=== PATIENT | male | born 1995 | race African-American/Black ===

== ENCOUNTER 2022-10-20 19:08 | Emergency (ER) | payer SELFPAY ==
[~2022-10-20] VITALS: Ht 177.8 cm; Wt 77.3 kg
[2022-10-20 19:26] VITALS: BP 105/51
[2022-10-20 20:09] LABS: Basophils # (auto) 0.1 10 ^3/uL (0-0.2); Basophils % (auto) 0.8 % (0.0-2.0); Eosinophils # (auto) 0.1 10 ^3/uL (0-0.8); Eosinophils % (auto) 0.7 % (0.0-7.0); Hematocrit 47.9 % (41.0-53.0); Hemoglobin 16.4 g/dL (13.5-17.5); Lymphocytes # (auto) 1.9 10 ^3/uL (0.4-5.4); Lymphocytes % (auto) 24.1 % (10.0-50.0); Mean Corpuscular Hemoglobin 29.8 pg (28.0-32.0); Mean Corpuscular Hgb Conc. 34.2 g/dL (32.0-36.0); Mean Corpuscular Volume 87.1 fL (80.0-100.0); Monocytes # (auto) 0.9 10 ^3/uL (0-1.3); Monocytes % (auto) 11.4 % (0.0-12.0); Nucleated Red Blood Cells % 0.2 %; White Blood Cell 7.9 10^3/uL (4.4-10.8)
[2022-10-20 20:31] LABS: Albumin 4.3 g/dL (3.4-5.0); Calcium 8.9 mg/dL (8.5-10.1)
[2022-10-20 20:34] LABS: BUN/Creatinine Ratio 25.2 (10.0-20.0); Bilirubin, Total 0.7 mg/dL (0.2-1.0); Total Protein 7.4 g/dL (6.4-8.2)
[2022-10-20 20:49] LABS: Urine WBC None Seen /hpf (0 - 3)
[2022-10-20 20:58] LABS: Urine Bacteria NONE SEEN /hpf (None Seen); Urine Blood Negative /uL (Negative); Urine Specific Gravity 1.016 (1.001-1.035)
== END 2022-10-20 21:02 | disposition left against medical advice (07) ==
LOC: ER 19:08
DX: R07.89 Other chest pain (principal); M54.2 Cervicalgia; M54.59 Other low back pain; M25.562 Pain in left knee; M25.561 Pain in right knee; Z53.21 Procedure and treatment not carried out due to patient leaving prior to being seen by health care provider
CPT/HCPCS: 36415; 70450; 71250; 72125; 74176; 80053; 81001; 83690; 85025